=== PATIENT | female | born 1935 | race Two or more races ===

== ENCOUNTER 2020-06-29 10:57 | Outpatient (CLI) | payer OTHER | END 2020-06-29 11:01 | disposition home or self-care (01) | LOC: RAD 10:57 | PROVIDERS: ATTEND Orthopaedic Surgery | DX: R10.2 Pelvic and perineal pain (principal); G35 Multiple sclerosis; S72.032D Displaced midcervical fracture of left femur, subsequent encounter for closed fracture with routine healing ==